=== PATIENT | female | born 1980 | race Caucasian/White ===

== ENCOUNTER 2019-06-01 09:51 | Emergency (ER) | payer OTHER, SELFPAY ==
[2019-06-01 10:06] VITALS: BP 144/82; PULSE 131; RESP 16; TEMP 37.8; O2SAT 100
--- NOTE | 2019-06-01 10:21 | ED.GENADULT ---
HPI - General Adult General Chief complaint: Upper Respiratory Infection Stated complaint: sore throat/fever Time Seen by Provider: 06/01/19 10:21 Source: patient Mode of arrival: ambulatory Limitations: no limitations History of Present Illness HPI narrative: 39-year-old female patient presents to the [facility] with complaints of sore throat and fever that started yesterday. Patient states her fever has gotten as high as 102. Patient states she has also had a little bit of a runny nose and some postnasal drip drainage. Patient denies any coughing, chest pain or shortness of breath. Patient denies any abdominal pain, nausea, vomiting or diarrhea. 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 Patient states she has not taken anything for her symptoms since they began. Patient denies any or breast-feeding at this time. Related Data Home Medications Medication Instructions Recorded Confirmed sumatriptan succinate [Imitrex] 50 mg PO DIRECTED 06/01/19 06/01/19 Allergies Allergy/AdvReac Type Severity Reaction Status Date / Time No Known Allergies Allergy Mild Verified 06/01/19 10:08 Review of Systems Review of Systems: Narrative: CONSTITUTIONAL: positive fever, denies chills, or sweats. EYES: Denies visual changes, redness, or discharge. ENT:positive rhinorrhea, congestion, sore throat, denies otalgia. CARDIOVASCULAR: Denies chest pain, palpitations, or edema. RESPIRATORY: Denies cough or dyspnea. GASTROINTESTINAL: Denies abdominal pain, nausea, vomiting, or diarrhea. GENITOURINARY: Denies dysuria or hematuria. SKIN: Denies rash or itching. MUSCULOSKELETAL: Denies back pain, joint pain, or myalgia. NEUROLOGIC: Denies headache, numbness, or weakness. PSYCHIATRIC: Denies anxiety or depression. ROS unobtainable: Yes unobtainable due to endotracheal tube PMFSH Past Medical History Medical History (Updated 06/01/19 @ 10:39 by MAREK Foreman) Depression Gallbladder attack Surgical History Surgical History (Updated 06/01/19 @ 10:22 by MAREK Foreman) Hx laparoscopic cholecystectomy Previous section Comments At the time of my signature I agree with nursing past medical history, surgical, social, and family history. There is no relevant family history pertinent to the presenting complaint. Exam Narrative: Exam Narrative: GENERAL: Well-appearing, well-nourished, and in no acute distress. HEAD: Normocephalic, atraumatic. EYES: PERRLA and EOMI. ENT: Nares clear, no rhinorrhea or epistaxis. Mucous membranes moist. Posterior pharynx with erythema, no tonsil enlargement, no exudates or lesions present.Bilateral TMs are clear with no erythema or foreign bodies in the canal NECK: Supple. Bilateral cervical lymphadenopathy CHEST: Clear to auscultation. No respiratory distress. HEART: Regular rate and rhythm. No murmur heard. Normal peripheral pulses. ABDOMEN: Soft, nontender, nondistended, normal active bowel sounds. EXTREMITIES: Normal range of motion. No edema. SKIN: Warm, dry, no rash. NEURO: No focal deficits. Alert and oriented x3. Course Vital Signs Vital signs: Vital Signs Temperature 37.8 C H 06/01/19 10:06 Pulse Rate 131 H 06/01/19 10:06 Respiratory Rate 16 06/01/19 10:06 Blood Pressure 144/82 H 06/01/19 10:06 Pulse Oximetry 100 06/01/19 10:06 Temperature 37.8 C H 06/01/19 10:06 Pulse Rate 131 H 06/01/19 10:06 Respiratory Rate 16 06/01/19 10:06 Blood Pressure 144/82 H 06/01/19 10:06 Pulse Oximetry 100 06/01/19 10:06 Vital signs reviewed The patient has been informed that they may have pre-hypertension or Hypertension based on a BP reading in the department. I recommend that the patient call the primary care provider listed on their discharge instructions or a physician of their choice this week to arrange follow up for further evaluation of possible pre-hypertension or Hypertension [facility]
== END 2019-06-01 10:42 | disposition home or self-care (01) ==
PROVIDERS: Emergency Provider Nurse Practitioner Family
DX: J02.0 Streptococcal pharyngitis (principal); Z20.828 Contact with and (suspected) exposure to other viral communicable diseases; R50.9 Fever, unspecified
CPT/HCPCS: 87880; 99203; G0463

== ENCOUNTER → 2020-11-03 01:28 | Outpatient (CLI) | payer OTHER, SELFPAY ==
[2020-11-03 19:39] LABS: SARS-CoV-2 RNA PCR Negative
== END ==
PROVIDERS: PCP Nurse Practitioner Family; Visit Provider Nurse Practitioner Family
DX: R50.9 Fever, unspecified (principal); Z20.822 Contact with and (suspected) exposure to COVID-19
CPT/HCPCS: C9803; U0003; U0005

== ENCOUNTER 2021-06-02 15:49 | Emergency (ER) | payer OTHER, SELFPAY ==
[2021-06-02 16:16] VITALS: BP 134/81; PULSE 113; RESP 18; TEMP 37.5; O2SAT 98
--- NOTE | 2021-06-02 16:37 | ED.URI ---
HPI - URI/Sore Throat General Chief Complaint: Upper Respiratory Infection Stated Complaint: Sinus Pain/Cough Time Seen by Provider: 06/02/21 16:38 Source: patient and RN notes reviewed Mode of arrival: ambulatory Limitations: no limitations History of Present Illness HPI Narrative: 41-year-old female presented for complaint of sinus congestion and pressure, postnasal drainage, cough, headache and body aches over the past 4 days. Denies chest pain, shortness of breath, wheezing, nausea, vomiting, diarrhea, fever or chills. She is taking bafd-dol-oajeter cold/flu medications for symptoms. Has been is being treated for bronchitis/pneumonia. She is a current smoker three quarters of a pack per day. She has not been boosted for COVID, she did take a home COVID test that was negative. She has not been vaccinated for the flu. MD elicited complaint: cough Related Data Home Medications Medication Instructions Recorded Confirmed sumatriptan succinate [Imitrex] 50 mg PO DIRECTED 06/01/19 06/02/21 Allergies Allergy/AdvReac Type Severity Reaction Status Date / Time No Known Allergies Allergy Mild Verified 06/02/21 16:26 Review of Systems Review of Systems: CONSTITUTIONAL: Denies malaise, chills, sweats, fever EYES: Denies visual changes, redness, or discharge ENT: Reports rhinorrhea, congestion, sinus pain, otalgia, sore throat CARDIOVASCULAR: Denies chest pain, palpitations, edema RESPIRATORY: Reports cough, post nasal drainage. Denies dyspnea GASTROINTESTINAL: Denies abdominal pain, nausea, vomiting, diarrhea SKIN: Denies rash or itching MUSCULOSKELETAL: Endorses myalgia NEUROLOGIC: Denies headache [facility] Past Medical History Medical History Depression Gallbladder attack Surgical History Surgical History Hx laparoscopic cholecystectomy Previous section Exam Narrative: GENERAL: Ill-appearing HEAD: Normocephalic EYES: conjunctivae clear ENT: Mucous membranes moist. Sounds congested/hoarse. TM pearly mckee with dull light reflex and erythematous canals bilaterally; no tragal tenderness. Oropharynx erythematous without lesions or exudate, no drooling, no hoarseness, no trismus, uvula midline. NECK: Supple. No lymphadenopathy CHEST: Clear to auscultation, breath sounds equal. No wheezing, rhonchi, rales, or stridor. No respiratory distress, speaks in full sentences. HEART: Regular rate and rhythm. No murmur heard. SKIN: Warm, dry, no rash. NEURO: Alert and oriented x3. PSYCH: Normal mood and affect Course Course Emergency Course: Patient is aware of diagnosis, understands and agrees to treatment plan. Anticipatory guidance given. Patient agrees to follow-up as directed and is aware of reasons to seek care at the emergency department. Portions of this record may have been created with voice recognition software Level of Care: Express Care Visit Vital Signs Vital signs: Vital Signs Temperature 99.5 F 06/02/21 16:16 Pulse Rate 113 H 06/02/21 16:16 Respiratory Rate 18 06/02/21 16:16 Blood Pressure 134/81 06/02/21 16:16 Pulse Oximetry 98 06/02/21 16:16 Temperature 99.5 F 06/02/21 16:16 Pulse Rate 113 H 06/02/21 16:16 Respiratory Rate 18 06/02/21 16:16 Blood Pressure 134/81 06/02/21 16:16 Pulse Oximetry 98 06/02/21 16:16 reviewed MDM - URI/Sore Throat MDM Narrative Medical decision making narrative: flu swab negative. She is advised on taking abx if sx persist for 10 days, as her PCP is out for over one week. She is appropriate for outpatient treatment and follow-up. Differential Diagnosis Differential diagnosis: Likely upper respiratory infection, sinusitis and viral infection Lab Data Attestation: I reviewed the patient's lab results. Labs: Influenza A Screen Negative Reference Range: N
== END 2021-06-02 17:20 | disposition home or self-care (01) ==
PROVIDERS: Emergency Provider Nurse Practitioner Family; PCP Nurse Practitioner Family
DX: J06.9 Acute upper respiratory infection, unspecified (principal); F17.210 Nicotine dependence, cigarettes, uncomplicated
CPT/HCPCS: 87804; 99213; G0463

== ENCOUNTER 2022-01-16 09:38 | Emergency (ER) | payer OTHER, SELFPAY ==
[2022-01-16 09:49] VITALS: BP 122/82; PULSE 96; RESP 14; TEMP 36.8; O2SAT 100
--- NOTE | 2022-01-16 10:01 | ED.URI ---
HPI - URI/Sore Throat General Chief Complaint: Upper Respiratory Infection Stated Complaint: Body Aches/Cough Time Seen by Provider: 01/16/22 10:01 Source: patient and RN notes reviewed Mode of arrival: ambulatory Limitations: no limitations History of Present Illness HPI Narrative: 41 y/o female presented for c/o Fever, headache, bodyaches, fatigue, since yesterday. Today started with sinus congestion and cough. Endorses daughter likely had influenza about 5 days ago. Patient denies shortness of breath, wheezing, nausea, vomiting, diarrhea. Not taking anything for symptoms. Patient smokes 3/4 PPD. MD elicited complaint: cough Related Data Home Medications Medication Instructions Recorded Confirmed No Home Medications 01/16/22 01/16/22 Allergies Allergy/AdvReac Type Severity Reaction Status Date / Time No Known Allergies Allergy Mild Verified 01/16/22 09:56 Review of Systems Review of Systems: CONSTITUTIONAL: Endorses malaise, chills, sweats, fever EYES: Denies visual changes, redness, or discharge ENT: Reports rhinorrhea, congestion, Deniesotalgia, sore throat CARDIOVASCULAR: Denies chest pain, palpitations, edema RESPIRATORY: Reports cough, post nasal drainage. Denies dyspnea GASTROINTESTINAL: Denies abdominal pain, nausea, vomiting, diarrhea SKIN: Denies rash or itching MUSCULOSKELETAL: Endorses myalgia PMFSH Past Medical History Medical History Depression Gallbladder attack Surgical History Surgical History Hx laparoscopic cholecystectomy Previous section Exam Narrative: GENERAL: Ill-appearing, nontoxic EYES: PERRLA, conjunctivae clear ENT: Mucous membranes moist. TMs pearly mckee with dull light reflex bilaterally; no tragal tenderness. Oropharynx erythematous without lesions or exudate, no drooling, no hoarseness, no trismus, uvula midline. CHEST: Clear to auscultation, breath sounds equal. No wheezing, rhonchi, rales, or stridor. No respiratory distress, speaks in full sentences. HEART: Regular rate and rhythm. No murmur heard. SKIN: Warm, dry, no rash. NEURO: Alert and oriented x3. PSYCH: Normal mood and affect Course Course Emergency Course: Patient is aware of diagnosis, understands and agrees to treatment plan. Anticipatory guidance given. Patient agrees to follow-up as directed and is aware of reasons to seek care at the emergency department. Portions of this record may have been created with voice recognition software Level of Care: Express Care Visit Vital Signs Vital signs: Vital Signs Temperature 98.2 F 01/16/22 09:49 Pulse Rate 96 01/16/22 09:49 Respiratory Rate 14 01/16/22 09:49 Blood Pressure 122/82 01/16/22 09:49 Pulse Oximetry 100 01/16/22 09:49 Oxygen Delivery Room Air 01/16/22 09:49 Temperature 98.2 F 01/16/22 09:49 Pulse Rate 96 01/16/22 09:49 Respiratory Rate 14 01/16/22 09:49 Blood Pressure 122/82 01/16/22 09:49 Pulse Oximetry 100 01/16/22 09:49 Oxygen Delivery Room Air 01/16/22 09:49 reviewed MDM - URI/Sore Throat MDM Narrative Medical decision making narrative: Influenza negative; likely false negative as family is positive for influenza. Advised supportive measures and signs/symptoms to go to the ER. Pt is appropriate for outpt treatment and f/u. Differential Diagnosis Differential diagnosis: Likely upper respiratory infection, sinusitis, viral infection and influenza Lab Data Labs: Influenza A Screen Positive Reference Range: Negative Influenza B Screen Negative Reference Range: Negative Discharge Plan Discharge Clinical Impression: Viral infection Patient Disposition: Home, Self-Care Condition: Stable Instructions: Influenza (ED) A
== END 2022-01-16 10:38 | disposition home or self-care (01) ==
PROVIDERS: Emergency Provider Nurse Practitioner Family; PCP Nurse Practitioner Family
DX: B34.9 Viral infection, unspecified (principal); J10.1 Influenza due to other identified influenza virus with other respiratory manifestations
CPT/HCPCS: 87804; 99213; G0463

== ENCOUNTER 2022-10-18 15:53 | Emergency (ER) | payer OTHER, SELFPAY ==
[2022-10-18 15:59] VITALS: BP 117/75; PULSE 79; RESP 14; TEMP 36.6; O2SAT 99
--- NOTE | 2022-10-18 16:10 | ED.URI ---
HPI - URI/Sore Throat General Chief Complaint: Upper Respiratory Infection Stated Complaint: work needs covid test Time Seen by Provider: 10/18/22 16:16 Source: patient and RN notes reviewed Mode of arrival: ambulatory Limitations: no limitations History of Present Illness HPI Narrative: 42-year-old female presents with concern, sore throat, headache body aches, COVID exposure. Reports she had a negative COVID test yesterday, but her workplace wants her to be tested officially . She denies fever. Reports she has been taking Advberenice ROGERS elicited complaint: cough and sore throat Related Data Home Medications Medication Instructions Recorded Confirmed escitalopram oxalate 20 mg tablet 20 mg PO DAILY 10/18/22 10/18/22 rizatriptan 10 mg disintegrating 10 mg translingual DAILY PRN 10/18/22 10/18/22 tablet Migraine Headache varenicline 1 mg tablet 1 mg PO BID 10/18/22 10/18/22 Allergies Allergy/AdvReac Type Severity Reaction Status Date / Time No Known Allergies Allergy Mild Verified 10/18/22 16:19 Review of Systems Review of Systems: CONSTITUTIONAL: Denies malaise, chills, sweats, or fever. EYES: Denies visual changes, redness, or discharge. ENT: Reports rhinorrhea, congestion, sore throat. Denies sinus pain, otalgia CARDIOVASCULAR: Denies chest pain, palpitations, or edema. RESPIRATORY: Reports cough. Denies dyspnea. GASTROINTESTINAL: Denies abdominal pain, nausea, vomiting, diarrhea SKIN: Denies rash or itching. MUSCULOSKELETAL: Reports myalgia. NEUROLOGIC: Reports headache. All systems reviewed & are unremarkable except as noted in HPI and below PMFSH Past Medical History Medical History Depression Gallbladder attack Surgical History Surgical History Hx laparoscopic cholecystectomy Previous section Comments At time of signature, agree with nursing past medical, surgical, social and family history. There is no relevant family history pertinent to the presenting complaint Exam Narrative: GENERAL: Well-appearing, well-nourished, and in no acute distress. HEAD: Normocephalic EYES: PERRLA, conjunctivae clear ENT: Nares clear, turbinates edematous and erythematous, clear discharge. Mucous membranes moist. TM pearly mckee with dull light reflex bilaterally; no tragal tenderness. Oropharynx not erythematous without lesions. Tonsils not enlarged and without exudate, no drooling, no hoarseness, no trismus, uvula midline. NECK: Supple. No lymphadenopathy CHEST: Clear to auscultation, breath sounds equal. No wheezing, rhonchi, rales, or stridor. No respiratory distress, speaks in full sentences. HEART: Regular rate and rhythm. No murmur heard. SKIN: Warm, dry, no rash. NEURO: Alert and oriented x3. PSYCH: Normal mood and affect Course Course Emergency Course: Patient is aware of diagnosis, understands and agrees to treatment plan. Anticipatory guidance given. Patient agrees to follow-up as directed and is aware of reasons to seek care at the emergency department. Portions of this record may have been created with voice recognition software Level of Care: Express Care Visit Vital Signs Vital signs: Vital Signs Temperature 97.9 F 10/18/22 15:59 Pulse Rate 79 10/18/22 15:59 Respiratory Rate 14 10/18/22 15:59 Blood Pressure 117/75 10/18/22 15:59 Pulse Oximetry 99 10/18/22 15:59 Temperature 97.9 F 10/18/22 15:59 Pulse Rate 79 10/18/22 15:59 Respiratory Rate 14 10/18/22 15:59 Blood Pressure 117/75 10/18/22 15:59 Pulse Oximetry 99 10/18/22 15:59 Reviewed. MDM - URI/Sore Throat MDM Narrative Medical decision making narrative: Differential diagnosis considered: Renteria virus, strep pharyngitis, allergic rhinitis, upper respiratory tract infection, sinusitis, rhinosinusitis, nasopharyngitis. viral pharyngitis, otitis media, otitis externa, pn
== END 2022-10-18 16:28 | disposition home or self-care (01) ==
PROVIDERS: Emergency Provider Nurse Practitioner; PCP Nurse Practitioner Family
DX: J06.9 Acute upper respiratory infection, unspecified (principal); Z20.822 Contact with and (suspected) exposure to COVID-19; F32.A Depression, unspecified
CPT/HCPCS: 87426; 99213; C9803; G0463